=== PATIENT | female | born 1940 | race African-American/Black ===

== ENCOUNTER 2022-04-21 13:29 | Inpatient (IN) | payer OTHER ==
[~2022-04-21] VITALS: Ht 172.7 cm; Wt 65.8 kg
--- NOTE | 2022-04-21 13:31 | NUR ---
PATIENT BIBA TO BED 12.
[2022-04-21 13:34] VITALS: BP 102/75
[2022-04-21] MEDS ORDERED: NACL 0.9% 500 ML IV ONE ×2 (13:50→14:00)
[2022-04-21 14:16] LABS: EOSINOPHILS % (AUTO) 0.8 % (0.0-4.0); HEMATOCRIT 35.8 % (36-48); HEMOGLOBIN 11.9 g/dL (12.0-16.0); LYMPHOCYTES # (AUTO) 1.1 K/uL (2.5-16.5); LYMPHOCYTES % (AUTO) 24.8 % (20.5-51.1); MEAN CORPUSCULAR HEMOGLOBIN 31 pg (27-31); MEAN CORPUSCULAR HGB CONC 33 g/dL (33-37); MEAN CORPUSCULAR VOLUME 92.7 fL (80-94); MONOCYTES # (AUTO) 0.4 K/uL (0.8-1.0); NEUTROPHILS # (AUTO) 2.9 K/uL (1.8-7.7); NEUTROPHILS % (AUTO) 65.4 % (42.2-75.2); PLATELET COUNT (AUTO) 147 K/uL (140-450); RED BLOOD CELL COUNT(AUTO) 3.86 MIL/uL (4.20-5.40); RED CELL DISTRIBUTION WIDTH 14.9 % (11.6-13.7); WHITE BLOOD COUNT (AUTO) 4.5 K/uL (4.8-10.8)
--- NOTE | 2022-04-21 14:29 | NUR ---
FAMILY CALLED AT BEDSIDE
[2022-04-21 14:36] LABS: ANION GAP 18.4 (8-16); CARBON DIOXIDE 26.7 mmol/L (21-32); CHLORIDE 93 mmol/L (98-107); GLUCOSE 101 mg/dL (74-106); POTASSIUM 4.1 mmol/L (3.5-5.1); SODIUM SERUM 134 mmol/L (136-145)
[2022-04-21 14:39] LABS: PROTHROMBIN TIME 11.3 secs (10.8-13.4)
[2022-04-21 14:41] LABS: CREATININE 5.9 mg/dL (0.6-1.3); UREA NITROGEN, BLOOD 166 mg/dL (7-18)
[2022-04-21 14:49] LABS: ALBUMIN 4.3 g/dL (3.4-5.0); ASPARTATE AMINOTRANSFERASE 29 U/L (15-37); TOTAL BILIRUBIN 0.6 mg/dL (0.0-1.0)
--- NOTE | 2022-04-21 14:55 | NUR ---
81Y/O FEMALE BIBA FROM URGENT CARE. PER EMS STAFF AT URGENT CARE CALLED 911 STATING PATIENT HYPOTENSIVE, ON ARRIVAL PATIENT BP 102/75. PATIENT DEAF AT BASELINE, VERBALLY RESPONSIVE, ABLE TO COMMUNICATE WITH GESTURES. EMS STATES PATIENTS FAMILY TOOK PATIENT TO BE EVALUATED FOR INCREASING GEN WEAKNESS AND DIFFICUTLY EATING X1 MONTH. NOTED SKIN TO BE DRY AND TENTED. IN A GOWN, PLACED ON CLAIM ADMINISTRATOR, PMH: HTN, CHOLESTEROL NKDA
--- NOTE | 2022-04-21 15:19 | NUR ---
CONNECTED TO [place], NO URINE NOTED
[2022-04-21] MEDS ORDERED: LACTATED RINGERS 1,000 ML IV ONE (15:25)
[2022-04-21] MEDS ORDERED: LINA290C PO (15:33)
[2022-04-21] MEDS ORDERED: NIFE90TE45 PO (15:33)
[2022-04-21] MEDS ORDERED: METO-747 PO (15:33)
[2022-04-21] MEDS ORDERED: CHOL200072 PO (15:33)
[2022-04-21] MEDS ORDERED: DOCU-3 PO (15:33)
[2022-04-21] MEDS ORDERED: HYDR-3639 PO (15:33)
[2022-04-21] MEDS ORDERED: ATOR20TA40 PO (15:33)
--- NOTE | 2022-04-21 17:00 | NUR ---
NOTED PT CONTINUED HR 36 TO 42, INFORMED ERMD, PT RESPIRATIONS EVEN AND UNLABORED, WARM TO TOUCH, AWAKE AND ALERT, VERBALLY RESPONSIVE, EASY TO AWAKEN WITH VERBAL STIMULI. STATED THAT LONG PT IS ASYMPTOMATIC, CONTINUE TO MONITOR. INFORM MD IMMEDIATELY IF PT IS BRADYCARDIC WITH DECREASE IN BP, MENTATION OR OTHER UNUSUAL S/S.
[2022-04-21] MEDS ORDERED: MAGNESIUM OXIDE 400 MG TAB PO PRN (18:00)
[2022-04-21] MEDS ORDERED: MAG SULF 2000 MG/WATER PREMIX 50 ML IV PRN (18:00)
[2022-04-21] MEDS ORDERED: KCL 20 MEQ/WATER INJ PREMIX 200 ML IV PRN (18:00)
[2022-04-21] MEDS: NACL 0.9% 1,000 ML IV SCH (18:00)
[2022-04-21] MEDS ORDERED: MORPHINE SULFATE 4 MG/ML SYR IVP PRN (18:00)
[2022-04-21] MEDS ORDERED: POTASSIUM CHLORIDE 10 MEQ TABER PO PRN (18:00)
[2022-04-21] MEDS ORDERED: ONDANSETRON 4 MG/2 ML VIAL IVP PRN (18:00)
--- NOTE | 2022-04-21 19:23 | NUR ---
Pt report given to MAY RN. Transfer of care at this time.
--- NOTE | 2022-04-21 22:00 | NUR ---
PT ARRIVED FROM ER VIA GURNEY. AWAKE AND ALERT. PT IS DEAF. PT HAS RIGHT AC 20 GAUGE RUNNING LR 100 CC/HR. PT NOT IN ANY DISTRESS. CALL LIGHT WITHIN REACH. WILL CONTINUE TO MONITOR THE PT.
--- NOTE | 2022-04-21 22:09 | NUR ---
Patient will be admitted to care of [facility]. Admited to CKD. Will go to room 106 A. Belongings list completed. Report to Hoang URENA.
[2022-04-21 22:21] VITALS: BP 133/62
[2022-04-22] VITALS: BP 124/75
--- NOTE | 2022-04-22 03:29 | NUR ---
PT FOUND SITING ON SIDE OF THE BED. PT STATED SHE IS TIRED OF LAYING ON HER BACK. EDUCATED PT TO USE CALL LIGHT SYSTEM FOR ASSISTANCE AND DO NOT TRY TO GET OUT WITHOUT ANY HELP. PT NODDED. WATER PROVIDED. PT HAS NO ISSUES AT THE MOMENT. WILL CONTINUE TO MONITOR.
[2022-04-22 04:00] VITALS: BP 117/65
[2022-04-22 06:04] LABS: BASOPHILS % (AUTO) 0.8 % (0.0-2.0); EOSINOPHILS % (AUTO) 0.8 % (0.0-4.0); HEMATOCRIT 32.4 % (36-48); LYMPHOCYTES # (AUTO) 0.8 K/uL (2.5-16.5); LYMPHOCYTES % (AUTO) 16.8 % (20.5-51.1); MEAN CORPUSCULAR HEMOGLOBIN 31 pg (27-31); MEAN CORPUSCULAR HGB CONC 34 g/dL (33-37); MEAN CORPUSCULAR VOLUME 92.7 fL (80-94); MONOCYTES # (AUTO) 0.5 K/uL (0.8-1.0); MONOCYTES % (AUTO) 10.8 % (1.7-9.3); NEUTROPHILS # (AUTO) 3.2 K/uL (1.8-7.7); NEUTROPHILS % (AUTO) 70.8 % (42.2-75.2); PLATELET COUNT (AUTO) 129 K/uL (140-450); RED BLOOD CELL COUNT(AUTO) 3.49 MIL/uL (4.20-5.40); RED CELL DISTRIBUTION WIDTH 14.3 % (11.6-13.7); WHITE BLOOD COUNT (AUTO) 4.5 K/uL (4.8-10.8)
[2022-04-22 06:24] LABS: ALBUMIN 4.1 g/dL (3.4-5.0); ASPARTATE AMINOTRANSFERASE 33 U/L (15-37); CARBON DIOXIDE 26.2 mmol/L (21-32); CHLORIDE 100 mmol/L (98-107); GLUCOSE 103 mg/dL (74-106); POTASSIUM 4.2 mmol/L (3.5-5.1); SODIUM SERUM 142 mmol/L (136-145); TOTAL BILIRUBIN 0.6 mg/dL (0.0-1.0)
[2022-04-22] MEDS: NACL 0.9% 1,000 ML IV SCH ×2 (06:46→16:49)
[2022-04-22 07:05] LABS: CREATININE 4.4 mg/dL (0.6-1.3); UREA NITROGEN, BLOOD 130 mg/dL (7-18)
--- NOTE | 2022-04-22 07:26 | NUR ---
ENDORSED PT TO DAY SHIFT RN FOR CONTINUITY OF CARE. PT IS STABLE.
--- NOTE | 2022-04-22 07:34 | NUR ---
PT RESTING IN BED EYES CLOSED. NO GUARDING OR GRIMACING. NO ACUT DISTRESS NOTED AT THIS TIME. [id number].
[2022-04-22 08:00] VITALS: BP 123/79
[2022-04-22 12:00] VITALS: BP 123/72
[2022-04-22 16:00] VITALS: BP 129/67
--- NOTE | 2022-04-22 17:10 | NUR ---
P.T. NOTES P.T. EVAL COMPLETED; REFER TO EVAL FOR DETAILS.
--- NOTE | 2022-04-22 19:30 | NUR ---
RECEIVED REPORT FROM DAY RN FOR CONTINUITY OF CARE. PT AWAKE, ALERT AND ORIENTED X 3.PT IS HARD OF HEARING.DAUGHTER LENA AT BEDSIDE. ON ROOM AIR, BREATHING EVEN AND UNLABORED. IV ON R AC G20 RUNNING NS AT 80MLS/HR. NO COMPLAINS AT THIS TIME. ALL PRECAUTIONS IN PLACE. CALL LIGHT WITHIN REACH. POC DISCUSSED. WILL CONTINUE TO MONITOR.
[2022-04-22 20:00] VITALS: BP 123/69
[2022-04-22 22:35] LABS: APPEARANCE,URINE CLEAR (CLEAR); BILIRUBIN,URINE NEGATIVE (NEGATIVE); BLOOD, URINE MODERATE (NEGATIVE); COLOR,URINE YELLOW (YELLOW); LEUKOCYTE ESTERASE ,URINE TRACE (NEGATIVE); NITRITE, URINE NEGATIVE (NEGATIVE); PH,URINE 5.5 (5.0-9.0); UGLUCOSE NEGATIVE (NEGATIVE)
[2022-04-22 22:48] LABS: RBC,URINE 0-5 /HPF (0-5)
[2022-04-23] VITALS: BP 123/70
--- NOTE | 2022-04-23 | NUR ---
VITALS SIGNS STABLE.BREATHING EVEN AND UNLABORED. NO S/SX OF RESPIRATORY DISTRESS.ALL PRECAUTIONS IN PLACE. CALL LIGHT WITHIN REACH. WILL CONTINUE TO MONITOR.
[2022-04-23 04:00] VITALS: BP 117/71
[2022-04-23 05:43] LABS: BASOPHILS % (AUTO) 0.5 % (0.0-2.0); EOSINOPHILS # (AUTO) 0.1 K/uL (0-0.4); EOSINOPHILS % (AUTO) 1.1 % (0.0-4.0); HEMATOCRIT 33.6 % (36-48); HEMOGLOBIN 11.2 g/dL (12.0-16.0); LYMPHOCYTES # (AUTO) 0.8 K/uL (2.5-16.5); LYMPHOCYTES % (AUTO) 16.7 % (20.5-51.1); MEAN CORPUSCULAR HEMOGLOBIN 31 pg (27-31); MEAN CORPUSCULAR HGB CONC 33 g/dL (33-37); MEAN CORPUSCULAR VOLUME 92.1 fL (80-94); MONOCYTES # (AUTO) 0.4 K/uL (0.8-1.0); NEUTROPHILS # (AUTO) 3.4 K/uL (1.8-7.7); NEUTROPHILS % (AUTO) 72.7 % (42.2-75.2); PLATELET COUNT (AUTO) 126 K/uL (140-450); RED BLOOD CELL COUNT(AUTO) 3.65 MIL/uL (4.20-5.40); RED CELL DISTRIBUTION WIDTH 14.6 % (11.6-13.7); WHITE BLOOD COUNT (AUTO) 4.6 K/uL (4.8-10.8)
--- NOTE | 2022-04-23 06:02 | NUR ---
PT ASLEEP. BREATHING EVEN AND UNLABORED. NO S/SX OF RESPIRATORY DISTRESS.ALL PRECAUTIONS IN PLACE. CALL LIGHT WITHIN REACH. WILL CONTINUE TO MONITOR.
[2022-04-23 06:35] LABS: ANION GAP 15.4 (8-16); ASPARTATE AMINOTRANSFERASE 28 U/L (15-37); CARBON DIOXIDE 29.2 mmol/L (21-32); CHLORIDE 105 mmol/L (98-107); GLUCOSE 117 mg/dL (74-106); MAGNESIUM 2.6 mg/dL (1.8-2.4); POTASSIUM 4.6 mmol/L (3.5-5.1); SODIUM SERUM 145 mmol/L (136-145); TOTAL BILIRUBIN 0.4 mg/dL (0.0-1.0)
[2022-04-23 06:39] LABS: UREA NITROGEN, BLOOD 104 mg/dL (7-18)
--- NOTE | 2022-04-23 07:30 | NUR ---
RECIEVED THE PATIENT FROM FINANCE BUSINESS MANAGER NURSE.PATIENT IS ALERT,VITALS ARE STABLE.NO SIGNS OF DISTRESS NOTED.ALL SAFETY MEASURS IN PLACE.WILL CONTINUE TO MONITOR.
[2022-04-23 08:00] VITALS: BP 123/69
[2022-04-23] MEDS: NACL 0.45% 1,000 ML IV SCH ×2 (11:02→20:50)
[2022-04-23 12:00] VITALS: BP 125/64
--- NOTE | 2022-04-23 12:55 | NUR ---
PATIENT IS ALERT ORIENTED.FREQUENT ROUNDS DONE.ALL SAFETY MEASURES IN PLACE.IV FLUIDS CHANGED PER ORDER.REPORTED MD REGARDING THE DIET CHANGE AND RECONCILE MEDS.WILL CONTINUE TO MONITOR.[id number]
[2022-04-23 16:00] VITALS: BP 113/67
--- NOTE | 2022-04-23 16:02 | NUR ---
DC PLANNING ASSESSMENT COMPLETE SEE ASSESSMENT FOR DETAILS TENTATIVE DC PLAN IS FOR PT TO RETURN HOME WITH HH OR SNF PLACEMENT TO AID IN GETTING PT BACK TO PREVIOUS LEVEL OF FX, ALL PENDING PHYSICIANS RECOMMENDATIONS. Addendum: 04/23/22 at 1603 by Asif Salgado SS Amended: Links added.
--- NOTE | 2022-04-23 16:08 | NUR ---
PATIENT HAS BEEN SCREENED AND CATEGORIZED LOW NUTRITION RISK. PATIENT WILL BE SEEN WITHIN 7 DAYS OF ADMISSION. 04/28/22 REVIEWED BY BOB JORDAN RD
--- NOTE | 2022-04-23 19:30 | NUR ---
ENDORSED THE PATIENT TO AIRPORT RAMP AGENT NURSE,ALL SAFETY MEASURES IN PLACE.VITALS STABLE
[2022-04-23 20:00] VITALS: BP 127/70
--- NOTE | 2022-04-23 20:01 | NUR ---
RECEIVED IN BED AWAKE DAUGHTER AT BEDSIDE PT DEAF ABLE TO COMMUNICATE WITH PEN AND PAPER ASSESSMENT COMPLETED PLAN OF CARE REVIEWED WILL CONTINUE TO MONITOR AND ASSESS
[2022-04-24] VITALS: BP 112/69
[2022-04-24 04:00] VITALS: BP 124/57
--- NOTE | 2022-04-24 06:37 | NUR ---
PT REFUSED AM LAB DRAW PEDIATRIC ONCOLOGIST WILL RETRY THIS AM
[2022-04-24] MEDS: NACL 0.45% 1,000 ML IV SCH ×2 (06:50→17:06)
--- NOTE | 2022-04-24 07:30 | NUR ---
RECIEVED PATIENT FROM SLOT MACHINE DEPARTMENT FLOORPERSON NURSE.PATIENT IS SLEEPING IN BED,CHEST RISING AND FALLING EVENLY.ON NC 3L .VITALS ARE STABLE.WILL CONTINUE TO MONITOR. Addendum: 04/24/22 at 0740 by TONIE SANDERS RN RECIEVED PATIENT FROM SLOT MACHINE DEPARTMENT FLOORPERSON NURSE,PATIENT IS ALERT ,DEAF SIGN BOARD ON PLACE.ON HALF NS.NO SIGNS OF DISTRESS NOTED.ALL SAFETY ,MEASURES IN PLACE.WILL CONTINUE TO MONITOR.
[2022-04-24 08:00] VITALS: BP 124/64
[2022-04-24 09:36] LABS: BASOPHILS # (AUTO) 0.1 K/uL (0.00-0.22); BASOPHILS % (AUTO) 1.1 % (0.0-2.0); EOSINOPHILS # (AUTO) 0.1 K/uL (0-0.4); EOSINOPHILS % (AUTO) 1.4 % (0.0-4.0); HEMATOCRIT 32.9 % (36-48); HEMOGLOBIN 10.6 g/dL (12.0-16.0); LYMPHOCYTES # (AUTO) 1.2 K/uL (2.5-16.5); LYMPHOCYTES % (AUTO) 22.9 % (20.5-51.1); MEAN CORPUSCULAR HEMOGLOBIN 30 pg (27-31); MEAN CORPUSCULAR HGB CONC 32 g/dL (33-37); MEAN CORPUSCULAR VOLUME 93.6 fL (80-94); MONOCYTES # (AUTO) 0.6 K/uL (0.8-1.0); MONOCYTES % (AUTO) 12.4 % (1.7-9.3); NEUTROPHILS # (AUTO) 3.1 K/uL (1.8-7.7); NEUTROPHILS % (AUTO) 62.2 % (42.2-75.2); PLATELET COUNT (AUTO) 116 K/uL (140-450); RED BLOOD CELL COUNT(AUTO) 3.51 MIL/uL (4.20-5.40); RED CELL DISTRIBUTION WIDTH 15.2 % (11.6-13.7); WHITE BLOOD COUNT (AUTO) 5.1 K/uL (4.8-10.8)
[2022-04-24 10:01] LABS: ALBUMIN 3.9 g/dL (3.4-5.0); ASPARTATE AMINOTRANSFERASE 30 U/L (15-37); CARBON DIOXIDE 26.9 mmol/L (21-32); CHLORIDE 106 mmol/L (98-107); CREATININE 2.2 mg/dL (0.6-1.3); GLUCOSE 101 mg/dL (74-106); MAGNESIUM 2.3 mg/dL (1.8-2.4); POTASSIUM 3.9 mmol/L (3.5-5.1); SODIUM SERUM 145 mmol/L (136-145); TOTAL BILIRUBIN 0.5 mg/dL (0.0-1.0)
[2022-04-24 10:17] LABS: UREA NITROGEN, BLOOD 69 mg/dL (7-18)
[2022-04-24 12:00] VITALS: BP 113/67
--- NOTE | 2022-04-24 15:14 | NUR ---
PHYSICAL THERAPY CO-SIGN The Physical Therapy Progress Notes documented by Licensed Practical Vocational Nurse have been reviewed. Reviewed/Co-Signed by: Holly Terrell Documentation Done by: DEEPTI EDMOND PTA Addendum: 04/24/22 at 1514 by Holly Terrell PT Amended: Links added.
--- NOTE | 2022-04-24 15:23 | NUR ---
DC PLANNING: DR BORJA AND CM SPOKE WITH PT'S DAUGHTER LENA AT BED SIDE REGARDING THE DC PLAN PER LENA REFUSED FOR HER MOM TO GO TO SNF. PER LENA IT HAS BEEN A LONG TIME SHE ATE FULL MEAL AND SHE WILL TALK TO FAMILY MEMBER TO INSERT G- TUBE. AWAITING FOR SWALLOWING EVAL. CM TO FOLLOW Addendum: 04/28/22 at 1637 by Em Sandoval RN DC PLANNING: PATIENT PASSED SWALLOWING EVAL BUT PER DAUGHTER REQUESTED THE G-TUBE TO BE PLACED AND REQUESTING HOSPITAL BED, WHEELCHAIR, WALKER, SHOWER CHAIR, BED SIDE COMMODE . CALLED [facility] SPOKE WITH YESSICA TREVINO AUTHORIZE COMFORT KEEPER. ARRANGED HOME HEALTH WITH [place] [facility] [phone] IRISIA [id number] COMFORT KEEPERS AUTH # [id number] PHONE [facility] [phone] DC PLAN AWAITING FOR G-TUBE PLACEMENT CM TO FOLLOW Addendum: 04/29/22 at 1352 by Em Sandoval RN DC PLANNING: FAXED THE G-TUBE FEEDING ORDER AND RECOMMENDATIONS FROM CONDOMINIUM PROPERTY MANAGER TO [facility]. CM TO FOLLOW Addendum: 04/30/22 at 1345 by Em Sandoval RN DC PLANNING: CM MET PATIENT'S DAUGHTER AT BED SIDE SHOWED HER HOW TO DO MANUAL TUBE FEEDING BY [employer]RAVITY AND HOW TO TAKE CARE OF G-TUBE SITE PER LENA VERBALIZED UNDERSTANDING. SHE ALSO CONFIRMED THAT HOSPITAL BED, WHEELCHAIR, BED SIDE COMMODE AND WALKER DELIVERED TO HER HOUSE. PER YESSICA BRADFORD AT [facility] WILL AUTHORIZE FOR ERROL [facility]OSTA CM WILL FOLLOW UP. ARRANGED TRANSPORT WITH [facility] TRANSPOR T TO HOME ADDRESS [address] ENDOCRINOLOGY PHYSICIAN TIME 6 PM. CM TO FOLLOW
[2022-04-24 16:00] VITALS: BP 140/77
--- NOTE | 2022-04-24 17:00 | NUR ---
MD AND LOIN PULLER AT BEDSIDE.POC DISCUSSING WITH THE DAUGHTER AT BEDSIDE.FIND NUTRITIONAL PROBLEM REGARDING THE POOR INTAKE.SWALLOW EVALUATION ORDERED.MNURSS1
[2022-04-24] MEDS: HYDROcodone/APAP 5/325 MG 1 TAB TAB PO PRN (17:37)
[2022-04-24 20:00] VITALS: BP 138/73
[2022-04-25] VITALS: BP 147/93
--- NOTE | 2022-04-25 | NUR ---
RECEIVED REPORT FROM DAY RN FOR CONTINUITY OF CARE. PT AWAKE, ALERT AND ORIENTED X 3.PT IS HARD OF HEARING.DAUGHTER LENA AT BEDSIDE. ON ROOM AIR, BREATHING EVEN AND UNLABORED. IV ON R AC G24, R FA G24 RUNNING NACL .45 AT 100MLS/HR. NO COMPLAINS AT THIS TIME. ALL PRECAUTIONS IN PLACE. CALL LIGHT WITHIN REACH. POC DISCUSSED. WILL CONTINUE TO MONITOR. Addendum: 04/26/22 at 0125 by Tiago Rodriguez RN WRONG TIME
[2022-04-25] MEDS: NACL 0.45% 1,000 ML IV SCH ×3 (01:12→23:15)
[2022-04-25 04:00] VITALS: BP 148/89
[2022-04-25 05:52] LABS: BASOPHILS % (AUTO) 0.7 % (0.0-2.0); EOSINOPHILS # (AUTO) 0.1 K/uL (0-0.4); EOSINOPHILS % (AUTO) 1.5 % (0.0-4.0); HEMOGLOBIN 10.7 g/dL (12.0-16.0); LYMPHOCYTES # (AUTO) 1.3 K/uL (2.5-16.5); LYMPHOCYTES % (AUTO) 25.9 % (20.5-51.1); MEAN CORPUSCULAR HEMOGLOBIN 31 pg (27-31); MEAN CORPUSCULAR HGB CONC 34 g/dL (33-37); MEAN CORPUSCULAR VOLUME 92.8 fL (80-94); MONOCYTES # (AUTO) 0.5 K/uL (0.8-1.0); MONOCYTES % (AUTO) 10.6 % (1.7-9.3); NEUTROPHILS # (AUTO) 3.1 K/uL (1.8-7.7); NEUTROPHILS % (AUTO) 61.3 % (42.2-75.2); PLATELET COUNT (AUTO) 117 K/uL (140-450); RED BLOOD CELL COUNT(AUTO) 3.45 MIL/uL (4.20-5.40); RED CELL DISTRIBUTION WIDTH 15.1 % (11.6-13.7); WHITE BLOOD COUNT (AUTO) 5.1 K/uL (4.8-10.8)
[2022-04-25 06:11] LABS: ALBUMIN 3.9 g/dL (3.4-5.0); ANION GAP 16.3 (8-16); ASPARTATE AMINOTRANSFERASE 35 U/L (15-37); CARBON DIOXIDE 24.6 mmol/L (21-32); CHLORIDE 106 mmol/L (98-107); CREATININE 1.9 mg/dL (0.6-1.3); GLUCOSE 97 mg/dL (74-106); MAGNESIUM 2.1 mg/dL (1.8-2.4); POTASSIUM 3.9 mmol/L (3.5-5.1); SODIUM SERUM 143 mmol/L (136-145); TOTAL BILIRUBIN 0.5 mg/dL (0.0-1.0); UREA NITROGEN, BLOOD 53 mg/dL (7-18)
--- NOTE | 2022-04-25 07:20 | NUR ---
RECEIVED REPORT NIGHT NURSE FOR CONTINUITY OF CARE. INITIAL ASSESSMENT DONE. IVF INFUSING WELL. CALL LIGHT KEPT WITHIN REACH. WILL CONTINUE TO MONITOR.
[2022-04-25 08:00] VITALS: BP 138/90
[2022-04-25 12:00] VITALS: BP 132/73
--- NOTE | 2022-04-25 14:50 | NUR ---
SEEN BY DR. LOVE.
[2022-04-25 16:00] VITALS: BP 145/89
--- NOTE | 2022-04-25 17:00 | NUR ---
PT STILL NOTED POOR APPETITE, ABLE TO CONSUMED 10% OF LUNCH AND 10% OF DINNER.
--- NOTE | 2022-04-25 19:10 | NUR ---
BEDSIDE REPORT GIVEN TO DAMON FOR CONTINUITY OF CARE. REMAINS STABLE.
--- NOTE | 2022-04-25 19:15 | NUR ---
RECEIVED REPORT FROM DAY RN FOR CONTINUITY OF CARE. PT AWAKE, ALERT AND ORIENTED X 3.PT IS HARD OF HEARING.DAUGHTER LENA AT BEDSIDE. ON ROOM AIR, BREATHING EVEN AND UNLABORED. IV ON R AC G24, R FA G24 RUNNING NACL .45 AT 100MLS/HR. NO COMPLAINS AT THIS TIME. ALL PRECAUTIONS IN PLACE. CALL LIGHT WITHIN REACH. POC DISCUSSED. WILL CONTINUE TO MONITOR.
[2022-04-25 20:00] VITALS: BP 140/93
--- NOTE | 2022-04-25 22:00 | NUR ---
PT CLEANED AND REPOSITIONED. ALL NEEDS ATTENDED. NO S/SX OF DISTRESS NOTED. ALL PRECAUTIONS IN PLACE. WILL CONTINUE TO MONITOR.
[2022-04-26] VITALS: BP 153/87
--- NOTE | 2022-04-26 00:30 | NUR ---
VITALS ARE STABLE. BREATHING EVEN AND UNLABORED, NO DISTRESS NOTED. ALL PRECAUTIONS IN PLACE .CALL LIGHT WITHIN REACH. WILL CONTINUE TO MONITOR.
[2022-04-26 04:00] VITALS: BP 140/80
[2022-04-26 04:51] LABS: EOSINOPHILS # (AUTO) 0.1 K/uL (0-0.4); EOSINOPHILS % (AUTO) 1.2 % (0.0-4.0); HEMATOCRIT 30.2 % (36-48); HEMOGLOBIN 10.1 g/dL (12.0-16.0); LYMPHOCYTES % (AUTO) 21.2 % (20.5-51.1); MEAN CORPUSCULAR HEMOGLOBIN 31 pg (27-31); MEAN CORPUSCULAR HGB CONC 33 g/dL (33-37); MEAN CORPUSCULAR VOLUME 92.4 fL (80-94); MONOCYTES # (AUTO) 0.4 K/uL (0.8-1.0); NEUTROPHILS # (AUTO) 3.2 K/uL (1.8-7.7); NEUTROPHILS % (AUTO) 67.6 % (42.2-75.2); PLATELET COUNT (AUTO) 117 K/uL (140-450); RED BLOOD CELL COUNT(AUTO) 3.27 MIL/uL (4.20-5.40); RED CELL DISTRIBUTION WIDTH 14.6 % (11.6-13.7); WHITE BLOOD COUNT (AUTO) 4.8 K/uL (4.8-10.8)
--- NOTE | 2022-04-26 06:57 | NUR ---
PT IS STABLE. NO ACUTE EVENTS THROUGHOUT THE NIGHT. NO S/SX OF DISTRESS NOTED. ALL NEEDS ATTENDED. NO PRECAUTIONS IN PLACE. CALL LIGHT WITHIN REACH. WILL ENDORSE TO DAY SHIFT NURSE.
[2022-04-26 07:00] LABS: ALBUMIN 3.5 g/dL (3.4-5.0); ANION GAP 16.3 (8-16); ASPARTATE AMINOTRANSFERASE 29 U/L (15-37); CARBON DIOXIDE 23.2 mmol/L (21-32); CHLORIDE 105 mmol/L (98-107); CREATININE 1.5 mg/dL (0.6-1.3); GLUCOSE 87 mg/dL (74-106); MAGNESIUM 1.7 mg/dL (1.8-2.4); POTASSIUM 3.5 mmol/L (3.5-5.1); SODIUM SERUM 141 mmol/L (136-145); TOTAL BILIRUBIN 0.7 mg/dL (0.0-1.0); UREA NITROGEN, BLOOD 35 mg/dL (7-18)
[2022-04-26 08:00] VITALS: BP 138/74
[2022-04-26] MEDS ORDERED: MAG SULF 2000 MG/WATER PREMIX 50 ML IV ONE (08:00)
[2022-04-26] MEDS: NACL 0.45% 1,000 ML IV SCH (09:44)
[2022-04-26 12:00] VITALS: BP 124/62
[2022-04-26 16:00] VITALS: BP 136/72
[2022-04-26] MEDS: DEXT 5% / NACL 0.45% 1,000 ML IV SCH (16:00)
--- NOTE | 2022-04-26 17:43 | NUR ---
Pt. refused all three meals. PMD made aware. Pt. may have PEG-T placement soon as per PMD because pt. has been refusing her meals.
--- NOTE | 2022-04-26 19:30 | NUR ---
RECEIVED REPORT FROM DAY SHIFT NURSE ALEXIS FOR CONTINUITY OF CARE. PATIENT IS A&O X0-1. PATIENT IS ON ROOM AIR, BREATHING IS NORMAL WITH SYMMETRICAL RISE AND FALL OF CHEST. PATIENT'S IV IS A 24G RAC AND A 24G RFA; RUNNING D5 1/2 NS AT 70. PATIENT IS AWAKE SITTING UP IN BED WITH TV ON. BED IS IN LOWEST POSITION WITH WHEELS LOCKED, CALL LIGHT IN PLACE. WILL CONTINUE TO OBSERVE PATIENT.
[2022-04-26 20:00] VITALS: BP 157/97
[2022-04-26] MEDS ORDERED: CRUSHER, PILL MC ONE (20:27)
[2022-04-26] MEDS: QUEtiapine FUMARATE 25 MG TAB PO SCH (20:30)
[2022-04-27] VITALS: BP 137/79
[2022-04-27 04:00] VITALS: BP 137/64
--- NOTE | 2022-04-27 04:30 | NUR ---
PATIENT GOT UP OUT OF BED AT 2308 AND STATED SHE WAS GOING TO GO TO THE BATHROOM. SHE APPEARED TO BE CONFUSED BUT WAS COOPERATIVE. PATIENT DID HAVE A BM. PATIENT WAS CLEANED AND HELPED BACK TO BED. EXPLAINED TO PATIENT THAT SHE HAS NICHOLSON CATHETER IN PLACE AND DID NOT NEED TO GO TO THE RESTROOM TO URINATE. COMMUNICATED WITH PATIENT USING WRITTEN NOTES; PT IS HEARING RANGES FROM BILATERAL HARD OF HEARING TO BILATERAL DEAFNESS. PATIENT ACKNOWLEDGED UNDERSTANDING AND SPENT THE REST OF THE NIGHT IN BED SLEEPING. IV IS STILL RUNNING, BREATHING IS NORMAL WITH SYMMETRICAL RISE AND FALL OF CHEST. WILL CONTINUE TO OBSERVE PATIENT.
[2022-04-27] MEDS: DEXT 5% / NACL 0.45% 1,000 ML IV SCH (06:18)
--- NOTE | 2022-04-27 07:02 | NUR ---
receive the patient in 126A aox1-2 deaf bedbound confuse admitting diagnosis of acute chronic injury . will continue to monitor
--- NOTE | 2022-04-27 07:08 | NUR ---
for swallow evaluation today for gastric tube placement
--- NOTE | 2022-04-27 07:43 | NUR ---
ENDORSED TO DAY SHIFT NURSE JONY FOR CONTINUITY OF CARE. PATIENT IS STABLE.
[2022-04-27 08:00] VITALS: BP 112/88
[2022-04-27] MEDS: QUEtiapine FUMARATE 25 MG TAB PO SCH ×2 (09:21→20:18)
--- NOTE | 2022-04-27 11:10 | NUR ---
nicholerenetta was transferred to 110 close to nurse station for closely monitoring
--- NOTE | 2022-04-27 14:00 | NUR ---
the patient pass the swallow evaluation . the therapist recommending appetite stimulant . . will call luis for the uapdates . also wioll ask the family to bring in the dentures
--- NOTE | 2022-04-27 15:37 | NUR ---
remove the intravenous identification band . no complain of pain no sign and symptoms of respiratory distress . discharge the patient to home with the Addendum: 04/27/22 at 1607 by Agency Iggy URENA RN wrong patient
[2022-04-27 16:00] VITALS: BP 106/66
--- NOTE | 2022-04-27 19:29 | NUR ---
RECEIVED PT IN BED ASLEEP, EASILY AROUSABLE BY TOUCH. NO S/SX OF PAIN NOR DISCOMFORT. NO ACUTE RESPIRATORY DISTRESS NOTED. SKIN WARM AND DRY TO TOUCH. ON BEDREST, BED IN THE LOWEST AND LOCKED POSITION FOR SAFETY. NICHOLSON CATHETER DISCONTINUED ORDERED, PT TOLERATED WELL. CALL LIGHT IN REACH.
[2022-04-27 20:00] VITALS: BP 98/52
--- NOTE | 2022-04-27 20:00 | NUR ---
REMOVED PREVIOUS IV WITH INTACT CATHETER, NOT FLUSHING. STARTED IV IN THE LEFT WRIST GAUGE 24 X 1 ATTEMPT, PT TOLERATED WELL.
--- NOTE | 2022-04-27 22:30 | NUR ---
PATIENT IS CLEAN, MADE COMFORTABLE IN BED. CALL LIGHT IN REACH.
[2022-04-28] VITALS: BP 116/65
--- NOTE | 2022-04-28 00:17 | NUR ---
INFORMED DR. LOVE PATIENT HAS NOT VOIDED SINCE REMOVAL OF NICHOLSON CATHETER, PER MD DO BLADDER SCANNER FIRST, IF GREATER THAN 350 OK TO RE-INSERT. INFORMED MD THAT NO AVAILABLE BLADDER SCANNER AT THIS TIME, INFORMED MD NOT ON IVF AND NOT MUCH DRINKING, PER MD MONITOR FOR NOW IF STILL NO URINE OUTPUT IN THE MORNING DO BLADDER ULTRASOUND. WILL CARRY OUT ORDER.
--- NOTE | 2022-04-28 01:52 | NUR ---
PATIENT IS ASLEEP. BREATHING EVEN AND UNLABORED. CALL LIGHT IN REACH.
[2022-04-28 04:00] VITALS: BP 119/60
--- NOTE | 2022-04-28 05:26 | NUR ---
AM CARE RENDERED, NO URINE OUTPUT AT THIS TIME. WILL ORDER BLADDER ULTRASOUND PER DR. LOVE.
--- NOTE | 2022-04-28 06:19 | NUR ---
PATIENT IS ASLEEP. NO DISTRESS NOTED. ALL NEEDS ATTENDED TO. SAFETY PRECAUTIONS MAINTAINED DURING THE SHIFT, CALL LIGHT REMAINS WITHIN REACH.
--- NOTE | 2022-04-28 07:27 | NUR ---
receive the patient from the night guard rn in 126B with admitting diagnosis of acute kidney injury . aox1-2 . for gastric tube feeding placement today . will continue to monitor
[2022-04-28 08:00] VITALS: BP 106/67
[2022-04-28] MEDS ORDERED: MEGESTROL 400 MG/10 ML UDC PO SCH (09:00)
[2022-04-28] MEDS: QUEtiapine FUMARATE 25 MG TAB PO SCH ×2 (09:17→20:31)
[2022-04-28] MEDS ORDERED: PHENOL/MENTHOL 177 ML BTL MM PRN (10:00)
[2022-04-28] MEDS ORDERED: DEXT 5% / NACL 0.45% 1,000 ML IV SCH (10:05)
--- NOTE | 2022-04-28 10:30 | NUR ---
scott was transferred to rm 108A . family has been notified .
[2022-04-28] MEDS ORDERED: BENZOCAINE 20% 57 GM CAN MC PRN (11:25)
[2022-04-28 12:00] VITALS: BP 104/64
--- NOTE | 2022-04-28 14:20 | NUR ---
patient was brought for gastric tube placement . abdominal binder is in place . ready to use for gastric tube feeding
--- NOTE | 2022-04-28 14:57 | NUR ---
PHYSICAL THERAPY NOTE: ATTEMPTED TO SEE PATIENT FOR PHYSICAL THERAPY TREATMENT HOWEVER PATIENT REFUSED ANY MOBILITY AT THIS TIME. FRIEND, RN, AND CM PRESENT. EDUCATED PATIENT ABOUT IMPORTANCE OF MOBILITY HOWEVER PATIENT CONTINUED REFUSAL AND BECAME IRRITABLE.
[2022-04-28] MEDS ORDERED: MIDAZOLAM 5 MG/5 ML VIAL ONE (15:16)
[2022-04-28] MEDS ORDERED: fentaNYL citrate 0.05 MG/ML VIAL ONE (15:16)
[2022-04-28] MEDS: fentaNYL citrate 0.05 MG/ML VIAL IVP ONE (15:27)
[2022-04-28] MEDS ORDERED: ceFAZolin 1,000 MG VIAL ONE (15:42)
[2022-04-28 16:00] VITALS: BP 91/62
--- NOTE | 2022-04-28 16:30 | NUR ---
scott came back from gastric tube feeding . tolerated the procedure . still on Ancef
--- NOTE | 2022-04-28 16:33 | NUR ---
04/28/22 RD INITIAL ASSESSMENT COMPLETED PLEASE REFER TO NUTRITION ASSESSMENT UNDER CARE ACTIVITY FOR ESTIMATED NUTRITIONAL NEEDS. 1. RECOMMEND ADDING RENAL TO CARDIAC PUREE DIET. 2. RECOMMEND NEPRO BID. -NEPRO BID WILL PROVIDE 840 KCALS, 38 G PROTEIN 3. IF PT GETS TUBE FEEDING, RECOMMEND NEPRO @35 ML/HR, FWF 100 ML Q4H, WILL PROVIDE 840 ML TOTAL VOLUME, 1512 KCAL, 68 G PROTEIN, 1210 ML FREE WATER, MEETING 79% ESTIMATED CALORIE AND 100% PROTEIN NEEDS 3. MONITOR LAB VALUES. 4. RD TO FOLLOW-UP 2-3 DAYS, HIGH RISK REVIEWED BY BOB JORDAN RD
--- NOTE | 2022-04-28 16:40 | NUR ---
notified the family and gave an update
--- NOTE | 2022-04-28 18:39 | NUR ---
will endorse to hourly shift rn for continuity of care
--- NOTE | 2022-04-28 19:15 | NUR ---
RECEIVED PT IN BED ASLEEP. NO S/SX OF PAIN NOR DISCOMFORT. NO ACUTE RESPIRATORY DISTRESS NOTED. G-TUBE PLACEMENT VERIFIED VIA AUSCULTATION, NO RESIDUAL NOTED, HEAD OF THE BED ELEVATED. SKIN WARM AND DRY TO TOUCH. SAFETY PRECAUTION IN PLACE, CALL LIGHT IN REACH.
[2022-04-28 20:00] VITALS: BP 100/55
--- NOTE | 2022-04-28 22:00 | NUR ---
REPOSITIONED PATIENT. HEAD OF THE BED ELEVATED.
[2022-04-29] VITALS: BP 105/59
[2022-04-29] MEDS: HYDROcodone/APAP 5/325 MG 1 TAB TAB PO PRN (00:19)
[2022-04-29 04:00] VITALS: BP 94/51
--- NOTE | 2022-04-29 05:35 | NUR ---
NO URINE OUTPUT AT THIS TIME, BLADDER DISTENDED ON PALPATION, PER PT HAS THE URGE BUT UNABLE TO VOID, CALL PLACED TO DR. FRANCE CLOSET ORGANIZER FOR TONIGHT. LEFT MESSAGE WITH EXCHANGE, AWAITING CALL BACK.
--- NOTE | 2022-04-29 05:39 | NUR ---
SPOKE WITH DR. FRANCE, INFORMED OF NO URINE OUTPUT, ORDERED TO DO STRAIGHT CATH. WILL CARRY OUT ORDER.
[2022-04-29] MEDS: LANSOPRAZOLE 30 MG CAPDR PO SCH (05:41)
--- NOTE | 2022-04-29 06:00 | NUR ---
STRAIGHT CATHETERIZATION DONE ORDERED, PT TOLERATED WELL, OUTPUT-450 ML OF YELLOW URINE. AM CARE RENDERED. DENIES PAIN. ALL NEEDS ATTENDED TO. PULLED UP AND MADE COMFORTABLE IN BED. SAFETY PRECAUTIONS MAINTAINED DURING THE SHIFT, CALL LIGHT REMAINS WITHIN REACH.
--- NOTE | 2022-04-29 07:05 | NUR ---
RECEIVED REPORT FROM CLINICAL FIELD SPECIALIST NURSE FOR CONTINUITY OF CARE. PT STABLE AT THIS TIME.
[2022-04-29] MEDS: fentaNYL citrate 0.05 MG/ML VIAL IVP ONE (07:58)
[2022-04-29] MEDS: MIDAZOLAM 2 MG/2 ML VIAL IVP ONE ×2 (07:59→15:26)
[2022-04-29 08:00] VITALS: BP 105/52
[2022-04-29 08:30] LABS: ANION GAP 11.7 (8-16); CARBON DIOXIDE 26.9 mmol/L (21-32); CHLORIDE 104 mmol/L (98-107); CREATININE 1.7 mg/dL (0.6-1.3); GLUCOSE 144 mg/dL (74-106); POTASSIUM 3.6 mmol/L (3.5-5.1); SODIUM SERUM 139 mmol/L (136-145); UREA NITROGEN, BLOOD 24 mg/dL (7-18)
[2022-04-29 08:41] LABS: BASOPHILS % (AUTO) 0.6 % (0.0-2.0); EOSINOPHILS # (AUTO) 0.1 K/uL (0-0.4); EOSINOPHILS % (AUTO) 1.5 % (0.0-4.0); HEMATOCRIT 27.8 % (36-48); HEMOGLOBIN 9.3 g/dL (12.0-16.0); LYMPHOCYTES # (AUTO) 0.8 K/uL (2.5-16.5); LYMPHOCYTES % (AUTO) 18.8 % (20.5-51.1); MEAN CORPUSCULAR HEMOGLOBIN 31 pg (27-31); MEAN CORPUSCULAR HGB CONC 34 g/dL (33-37); MEAN CORPUSCULAR VOLUME 92.5 fL (80-94); MONOCYTES # (AUTO) 0.5 K/uL (0.8-1.0); NEUTROPHILS # (AUTO) 2.9 K/uL (1.8-7.7); NEUTROPHILS % (AUTO) 68.1 % (42.2-75.2); PLATELET COUNT (AUTO) 122 K/uL (140-450); RED CELL DISTRIBUTION WIDTH 14.9 % (11.6-13.7); WHITE BLOOD COUNT (AUTO) 4.2 K/uL (4.8-10.8)
[2022-04-29] MEDS: LACTULOSE 20 GM/30 ML UDC PO SCH (08:53)
[2022-04-29] MEDS: QUEtiapine FUMARATE 25 MG TAB PO SCH ×2 (08:53→20:33)
[2022-04-29 12:00] VITALS: BP 94/54
--- NOTE | 2022-04-29 13:16 | NUR ---
RD RECEIVED PHONE CALL FROM [employer] TO CALCULATE BOLUS FEEDS FOR PT FOR 30 ML/HR. PT WILL NEED THREE 8 OZ CARTONS OF JEVITY 1.[address] RECOMMENDS 1 CARTON Q5H WITH 80 ML FREE WATER FLUSH BEFORE AND AFTER EACH BOLUS FEED. FIRST CARTON CAN BE GIVEN AT 8 AM, SECOND CARTON AT 1 PM, AND THIRD CARTON AT 6 PM. - PROVIDES 711 ML TOTAL VOLUME, 855 KCAL, 39 GM PROTEIN AND 1053 ML FREE WATER DAILY. CONTACT RD PRN
--- NOTE | 2022-04-29 15:19 | NUR ---
STRAIGHT CATHETERIZATION DONE ORDERED, PT TOLERATED WELL, OUTPUT- 300ML OF YELLOW/ LIGHT GABINO URINE. THERE WAS SLIGHT CLOUDINESS.
[2022-04-29 16:00] VITALS: BP 111/64
[2022-04-29] MEDS: ACETAMINOPHEN 325 MG TAB PO PRN (17:40)
--- NOTE | 2022-04-29 19:10 | NUR ---
ENDORSED PT TO STITCHER FEEDER FOR CONTINUITY OF CARE. PT STABLE AT THIS TIME.
--- NOTE | 2022-04-29 19:15 | NUR ---
RECEIVED PT BED ASLEEP EASILY AROUSABLE BY TOUCH. DENIES PAIN AT THIS TIME. NO ACUTE RESPIRATORY DISTRESS NOTED. G-TUBE FEEDING TOLERATING WELL, PLACEMENT VERIFIED VIA AUSCULTATION, NO RESIDUAL AT THIS TIME, HEAD OF THE BED ELEVATED FOR ASPIRATION PRECAUTION. SKIN WARM AND DRY TO TOUCH. PERINEAL CARE RENDERED, MADE COMFORTABLE IN BED. SAFETY PRECAUTION IN PLACE, CALL LIGHT IN REACH.
[2022-04-29 20:00] VITALS: BP 108/62
--- NOTE | 2022-04-29 20:24 | NUR ---
spoke with dr. pete, informed md no urine output since last straight cath done at 1300. ordered to insert centeno catheter. will carry out as ordered Addendum: 04/29/22 at 2599 by Steffi Zepeda RN STRAIGHT CATH DONE AT 1300 PER ENDORSEMENT OF RANDEE URENA.
--- NOTE | 2022-04-29 21:00 | NUR ---
inserted centeno catheter as ordered, pt tolerated well. drained 200 ml of yellow urine.
--- NOTE | 2022-04-29 23:58 | NUR ---
PATIENT IS ASLEEP AT THIS TIME. NO S/SX OF PAIN NOR DISCOMFORT. NO RESIDUAL FROM G-TUBE, HEAD OF THE BED ELEVATED FOR ASPIRATION PRECAUTION. CALL LIGHT WITHIN REACH.
[2022-04-30] VITALS: BP 120/69
[2022-04-30 04:00] VITALS: BP 120/66
[2022-04-30] MEDS: ACETAMINOPHEN 325 MG TAB PO PRN (05:26)
[2022-04-30] MEDS: LANSOPRAZOLE 30 MG CAPDR PO SCH (05:41)
--- NOTE | 2022-04-30 05:41 | NUR ---
AM CARE DONE, ORAL CARE RENDERED. MADE COMFORTABLE IN BED. NO RESIDUAL FROM G-TUBE.
--- NOTE | 2022-04-30 06:21 | NUR ---
PATIENT IS ASLEEP. NO DISTRESS NOTED. ALL NEEDS ATTENDED TO. SAFETY PRECAUTIONS IN PLACE, CALL LIGHT REMAINS WITHIN REACH.
--- NOTE | 2022-04-30 07:05 | NUR ---
RECEIVED REPORT FROM BRAIDING MACHINE OPERATOR NURSE FOR CONTINUITY OF CARE. PT STABLE AT THIS TIME.
[2022-04-30 08:00] VITALS: BP 109/63
[2022-04-30] MEDS: LACTULOSE 20 GM/30 ML UDC PO SCH (09:00)
[2022-04-30] MEDS: QUEtiapine FUMARATE 25 MG TAB PO SCH (09:00)
[2022-04-30 12:00] VITALS: BP 109/67
[2022-04-30] MEDS ORDERED: phenoL 1.4% SPRAY 20 ML BTL MM PRN (14:15)
[2022-04-30 16:00] VITALS: BP 99/58
--- NOTE | 2022-04-30 19:10 | NUR ---
ENDORSED PT TO CAMPUS SECURITY DIRECTOR FOR CONTINUITY OF CARE. PT STABLE AT THIS TIME.
--- NOTE | 2022-04-30 20:00 | NUR ---
DISCHARGED PT HOME WITH DAUGHTER LENA. DISCHARGE INSTRUCTIONS GIVEN AND EXPLAINED TO SANDEEP. ALL BELONGINGS TAKEN WITH PATIENT.
== END 2022-04-30 20:00 | disposition home health service (06) | DRG 682 ==
LOC: MED 13:29 → MTU 18:02 → MMU 20:59 → MTU 04-27 12:30
PROVIDERS: ADMIT Hospitalist; ATTEND Hospitalist
PROC: 0DJ08ZZ Inspection of Upper Intestinal Tract, Via Natural or Artificial Opening Endoscopic (ICD-10-PCS; 2022-04-28)
PROC: 0DH68UZ Insertion of Feeding Device into Stomach, Via Natural or Artificial Opening Endoscopic (ICD-10-PCS; principal; 2022-04-28 16:10)
DX: N17.9 Acute kidney failure, unspecified (principal); G93.41 Metabolic encephalopathy; I21.A1 Myocardial infarction type 2; I95.9 Hypotension, unspecified; E86.0 Dehydration; D64.9 Anemia, unspecified; K29.50 Unspecified chronic gastritis without bleeding; Z87.11 Personal history of peptic ulcer disease; F03.90 Unspecified dementia, unspecified severity, without behavioral disturbance, psychotic disturbance, mood disturbance, and anxiety; E78.5 Hyperlipidemia, unspecified; I12.9 Hypertensive chronic kidney disease with stage 1 through stage 4 chronic kidney disease, or unspecified chronic kidney disease; N18.9 Chronic kidney disease, unspecified; R00.1 Bradycardia, unspecified; Z20.822 Contact with and (suspected) exposure to COVID-19
CPT/HCPCS: 36415; 71045; 76770; 76856; 80048; 80053; 81001; 82550; 82553; 82948; 83605; 83735; 83880; 84484; 85025; 85610; 85730; 87040; 87081; 87086; 92526; 93005; 96360; 96361; 97112; 97116; 97530; 99291; J0690; J2250; J2270; J2405; J3010; J3475; Q0092